=== PATIENT | male | born 1965 | race Caucasian/White ===

== ENCOUNTER 2020-09-23 11:24 | Day surgery (SDC) | payer OTHER ==
[2020-09-20 11:09] VITALS: BMI 30.7
[2020-09-23] MEDS ORDERED: BUPIVACAINE HCL/PF 0.5% (5MG/ML) 10 ML VIAL ONE (13:09)
[2020-09-23] MEDS ORDERED: LIDOCAINE HCL 1%, 10 MG/ML (20ML VIAL) ONE (13:09)
[2020-09-23 14:33] VITALS: TEMP 98.2
[2020-09-23 15:07] VITALS: BP 126/81; PULSE 88
== END 2020-09-23 15:16 | disposition home or self-care (01) ==
LOC: FASU 11:24
PROVIDERS: ATTEND Podiatrist Foot & Ankle Surgery
PROC: 0QBR0ZZ Excision of Left Toe Phalanx, Open Approach (ICD-10-PCS; principal; 2020-09-23 13:36)
DX: D16.32 Benign neoplasm of short bones of left lower limb (principal)
CPT/HCPCS: 73630-TC-LT; 88304-TC

== ENCOUNTER 2023-01-01 11:44 | Emergency (ER) | payer OTHER ==
[2023-01-01 12:13] VITALS: BP 108/76; PULSE 62; RESP 18; TEMP 98; BMI 23.0
[2023-01-01] MEDS ORDERED: ACETAMINOPHEN 1000 MG/100 ML BAG IVPB ONE (12:47)
[2023-01-01] MEDS ORDERED: SODIUM CHLORIDE 0.9% 500 ML INFUS.BAG IV ONE (12:47)
[2023-01-01] MEDS ORDERED: ACETAMINOPHEN INJECTION 100 ML IVPB ONE (13:03)
[2023-01-01 13:24] LABS: HEMATOCRIT 41.3 % (35.4-49); HEMOGLOBIN 14.5 G/dL (11.7-16.9); MCH 31.3 pg (25.7-33.7); MEAN CELL VOLUME 89.3 fl (80-96); MEAN PLT VOLUME 6.7 fl (7.5-11.1); PLATELET COUNT 341.8 10^3/uL (134-434); RBC 4.63 10^6/uL (4.00-5.60); RDW 13.6 % (11.9-15.9); WHITE BLOOD COUNT 9.7 10^3/uL (4.0-10.8)
[2023-01-01 13:29] LABS: ALBUMIN 3.3 g/dl (3.4-5.0); BILIRUBIN,TOTAL 0.4 mg/dl (0.2-1); CALCIUM 8.4 mg/dl (8.5-10); CREATININE 0.8 mg/dl (0.55-1.3)
[2023-01-01 13:32] LABS: PLATELET ESTIMATE ADEQUATE
[2023-01-01] MEDS ORDERED: CIPROFLOXACIN 400 MG/D5W 400 MG/200 ML IVPB IVPB ONE ×2 (15:11→15:17)
== END 2023-01-01 16:05 | disposition home or self-care (01) ==
LOC: FER 11:44
PROC: 3E033GC Introduction of Other Therapeutic Substance into Peripheral Vein, Percutaneous Approach (ICD-10-PCS; principal; 2023-01-01)
DX: K52.9 Noninfective gastroenteritis and colitis, unspecified (principal)
CPT/HCPCS: 36415; 74177-TC; 80053; 83690; 85027; 99285-25; Q9967